=== PATIENT | male | born 1965 | race Caucasian/White ===

== ENCOUNTER 2018-03-27 00:33 | Inpatient (IN) ==
[2018-03-27] MEDS ORDERED: SODIUM CHLORIDE 0.9% 1,000 ML IV STA (00:55)
[2018-03-27 01:04] LABS: Basophils % 0.5 % (0.0-0.8); Eosinophils # 0.2 10*3/uL (0.0-0.87); Eosinophils % 1.9 % (0.00-10.9); Hematocrit 33.5 VOL% (42.0-52.0); Hemoglobin 11.4 GM/DL (14.0-18.0); Immature Granulocytes % 0.7 %; Immature Granulocytes Absolute 0.06 #; Lymphocytes # 1.8 10*3/uL (1.4-4.0); Lymphocytes % 21.3 % (21.2-54.2); Mean Corpuscular Hemoglobin 33 PG (27-34); Mean Corpuscular Volume 97.1 FL (87-102); Mean Platelet Volume 9.9 FL (9.6-12.0); Monocytes # 1.2 10*3/uL (0.11-0.8); Monocytes % 14.4 % (1.7-12.7); Neutrophils # 5.2 10*3/uL (1.4-7.4); Neutrophils % 61.2 % (38.7-73.9); Platelet Count 248 T/CUMM (130-400); Red Blood Count 3.45 MC/CUMM (3.8-5.5); Red Cell Distribution Width 12.3 % (9.3-17.3); White Blood Count 8.5 T/CUMM (4-12)
[2018-03-27 01:13] LABS: PT Patient Result 10.2 SECS
[2018-03-27 02:00] LABS: Alanine Aminotransferase 70 U/L (16-61); Albumin 3.1 G/DL (3.4-5.0); Alkaline Phosphatase 57 U/L (45-117); Aspartate Amino Transferase 38 U/L (0-37); Bilirubin,Total 0.79 MG/DL (0.2-1.0); Calcium 8.1 MG/DL (8.5-10.1)
[2018-03-27 02:01] LABS: Blood Urea Nitrogen 23 MG/DL (7-18); Glucose 182 MG/DL (74-106); Osmolality,Calculated 281.8 MOS/KG (273-304); Potassium 4.3 MMOL/L (3.5-5.1); Sodium 137 MMOL/L (136-145)
[2018-03-27] MEDS ORDERED: ACETAMINOPHEN 325 MG TABLET PO PRN (02:21)
[2018-03-27] MEDS ORDERED: ONDANSETRON 4 MG/2 ML VIAL IV PRN (02:21)
[2018-03-27] MEDS ORDERED: SODIUM CHLORIDE 0.9% 1,000 ML IV PRN (02:25)
[2018-03-27] MEDS ORDERED: LORazepam 2 MG/1 ML VIAL IV PRN (02:34)
[2018-03-27] MEDS: SODIUM CHLORIDE 0.9% 1,000 ML IV SCH ×3 (04:09→20:13)
[2018-03-27] MEDS ORDERED: metroNIDAZOLE INJ 500 MG in PREMIX 1 EACH IV SCH (05:00)
[2018-03-27] MEDS ORDERED: LEVOFLOXACIN INJ 500 MG in PREMIX 1 EACH IV SCH (05:00)
[2018-03-27 07:11] LABS: Calcium 7.9 MG/DL (8.5-10.1); Osmolality,Calculated 279.7 MOS/KG (273-304); Potassium 4.7 MMOL/L (3.5-5.1)
[2018-03-27 07:45] LABS: Basophils % 0.3 % (0.0-0.8); Eosinophils # 0.1 10*3/uL (0.0-0.87); Eosinophils % 1.2 % (0.00-10.9); Hematocrit 31.6 VOL% (42.0-52.0); Hemoglobin 10.8 GM/DL (14.0-18.0); Immature Granulocytes Absolute 0.07 #; Lymphocytes % 14.2 % (21.2-54.2); Mean Corpuscular HGB Conc 34.2 GM/DL (32-36); Mean Corpuscular Hemoglobin 33 PG (27-34); Mean Corpuscular Volume 96.6 FL (87-102); Mean Platelet Volume 9.6 FL (9.6-12.0); Monocytes # 0.9 10*3/uL (0.11-0.8); Monocytes % 12.9 % (1.7-12.7); Neutrophils # 4.8 10*3/uL (1.4-7.4); Neutrophils % 70.4 % (38.7-73.9); Platelet Count 191 T/CUMM (130-400); Red Blood Count 3.27 MC/CUMM (3.8-5.5); Red Cell Distribution Width 12.3 % (9.3-17.3); White Blood Count 6.8 T/CUMM (4-12)
[2018-03-27] MEDS: PANTOPRAZOLE 40 MG VIAL IV SCH ×2 (09:13→20:11)
[2018-03-27] MEDS: BISACODYL 5 MG TABLET PO SCH ×3 (09:13→22:35)
[2018-03-27 10:17] LABS: Hepatitis A Ab IgM Quant 0.04 Index; Hepatitis A Ab IgM Result Negative (Negative); Hepatitis B Core IgM Quant 0.15 Index; Hepatitis B Core IgM Result Negative (Negative); Hepatitis B Surface Ag Quant 0.16 Index; Hepatitis B Surface Ag Result Negative (Negative); Hepatitis C Virus Ab Result Negative (Negative)
[2018-03-27] MEDS ORDERED: POLYETHYLENE GLYCOL POWDER 255 GM BOTTLE PO ONE (18:00)
[2018-03-27] MEDS ORDERED: MAGNESIUM CITRATE 300 ML BOTTLE PO ONE (21:00)
[2018-03-28] MEDS: SODIUM CHLORIDE 0.9% 1,000 ML IV SCH ×3 (03:01→20:31)
[2018-03-28] MEDS: PANTOPRAZOLE 40 MG VIAL IV SCH ×2 (08:22→20:36)
[2018-03-28] MEDS ORDERED: PROPOFOL 200 MG/20 ML VIAL IV ONE (12:12)
[2018-03-28] MEDS ORDERED: LIDOCAINE 2% 5 ML VIAL ONE (12:12)
[2018-03-28 14:21] LABS: Basophils % 0.5 % (0.0-0.8); Eosinophils # 0.2 10*3/uL (0.0-0.87); Eosinophils % 4.1 % (0.00-10.9); Hematocrit 26.6 VOL% (42.0-52.0); Hemoglobin 8.9 GM/DL (14.0-18.0); Immature Granulocytes % 0.7 %; Immature Granulocytes Absolute 0.03 #; Lymphocytes # 0.6 10*3/uL (1.4-4.0); Lymphocytes % 13.6 % (21.2-54.2); Mean Corpuscular HGB Conc 33.5 GM/DL (32-36); Mean Corpuscular Hemoglobin 34 PG (27-34); Mean Corpuscular Volume 100.4 FL (87-102); Mean Platelet Volume 9.7 FL (9.6-12.0); Monocytes # 0.5 10*3/uL (0.11-0.8); Monocytes % 11.6 % (1.7-12.7); Neutrophils # 3.1 10*3/uL (1.4-7.4); Neutrophils % 69.5 % (38.7-73.9); Platelet Count 162 T/CUMM (130-400); Red Blood Count 2.65 MC/CUMM (3.8-5.5); Red Cell Distribution Width 12.5 % (9.3-17.3); White Blood Count 4.4 T/CUMM (4-12)
[2018-03-28] MEDS ORDERED: SODIUM CHLORIDE 0.9% 1,000 ML IV PRN (14:28)
[2018-03-28 19:53] LABS: Hematocrit 26.2 VOL% (42.0-52.0); Hemoglobin 8.6 GM/DL (14.0-18.0)
[2018-03-29] MEDS: SODIUM CHLORIDE 0.9% 1,000 ML IV SCH (03:23)
[2018-03-29 05:26] LABS: Hemoglobin 8.9 GM/DL (14.0-18.0)
[2018-03-29 05:27] LABS: Basophils % 0.5 % (0.0-0.8); Eosinophils # 0.2 10*3/uL (0.0-0.87); Eosinophils % 4.1 % (0.00-10.9); Hematocrit 27.7 VOL% (42.0-52.0); Immature Granulocytes Absolute 0.04 #; Lymphocytes # 0.7 10*3/uL (1.4-4.0); Lymphocytes % 18.8 % (21.2-54.2); Mean Corpuscular HGB Conc 32.5 GM/DL (32-36); Mean Corpuscular Hemoglobin 32 PG (27-34); Mean Corpuscular Volume 98.6 FL (87-102); Monocytes # 0.4 10*3/uL (0.11-0.8); Monocytes % 11.3 % (1.7-12.7); Neutrophils # 2.5 10*3/uL (1.4-7.4); Neutrophils % 64.3 % (38.7-73.9); Platelet Count 178 T/CUMM (130-400); Red Blood Count 2.81 MC/CUMM (3.8-5.5); Red Cell Distribution Width 12.3 % (9.3-17.3); White Blood Count 3.9 T/CUMM (4-12)
[2018-03-29] MEDS: PANTOPRAZOLE 40 MG VIAL IV SCH (08:56)
[2018-03-29] MEDS ORDERED: PROPOFOL 200 MG/20 ML VIAL IV ONE (09:00)
[2018-03-29] MEDS ORDERED: LIDOCAINE 100 MG/5 ML SYRINGE ONE (09:00)
[2018-03-29] MEDS ORDERED: INFLUENZA VIRUS VACCINE 0.5 ML SYRINGE IM ONE (10:04)
[2018-03-29 12:10] VITALS: BP 161/81
== END 2018-03-29 12:25 | disposition home or self-care (01) | DRG 379 ==
LOC: N.ED 00:33 → SUATTDRO 02:21 → N.EDINP 02:21 → N.CC 04:33 → N.3E 20:54
PROVIDERS: ADMIT Internal Medicine Geriatric Medicine; ATTEND Internal Medicine